=== PATIENT | male | born 1975 | race African-American/Black ===

== ENCOUNTER 2021-12-30 17:03 | Emergency (ER) | payer SELFPAY ==
[2021-12-30 17:16] VITALS: BP 100/75; PULSE 63; RESP 19; TEMP 98.1; BMI 23.1
[2021-12-30] MEDS ORDERED: KETOROLAC TROMETHAMINE 60 MG/2 ML VIAL IM ONE (17:42)
[2021-12-30] MEDS ORDERED: KETOROLAC TROMETHAMINE 30 MG/1 ML VIAL ONE (17:43)
== END 2021-12-30 18:03 | disposition home or self-care (01) ==
LOC: JER 17:03 → JERFT 17:03
PROC: 3E0233Z Introduction of Anti-inflammatory into Muscle, Percutaneous Approach (ICD-10-PCS; principal; 2021-12-30)
DX: S93.402A Sprain of unspecified ligament of left ankle, initial encounter (principal); X50.0XXA Overexertion from strenuous movement or load, initial encounter
CPT/HCPCS: 73610-TC-LT-FY; 73630-TC-LT; 99284-25